=== PATIENT | male | born 1970 | race Hispanic/Latino ===

== ENCOUNTER 2018-01-06 09:03 | Outpatient (CLI) | payer OTHER ==
--- NOTE | 2018-01-06 09:51 | XRay Report ---
Cervical spine 3 views: History: Osteoarthritis. Findings: Normal height of vertebral bodies. Decrease in height of C4-C5, C5-C6. More pronounced at C5-C6. Sclerotic articular surfaces with evidence of cervical spondylosis. Normal prevertebral soft tissue. No fracture. Impression: Cervical spondylosis C4-C5 and C5-C6..
--- NOTE | 2018-01-06 09:52 | XRay Report ---
Left knee 2 views: History: Osteoarthritis. Findings: Minimal of the medial and patellofemoral compartment knee joint is noted articular surfaces of the degenerative changes being more pronounced in the patellofemoral compartment. No fracture. No joint effusion or soft tissue calcification. Impression: Mild arthritic changes medial and patellofemoral compartment knee joint.
--- NOTE | 2018-01-06 09:53 | XRay Report ---
Right shoulder 3 views: History: Osteoarthritis. Findings: There is [id number] arthritic changes noted at the a.c. joint. There is also calcification noted at the superior aspect of the a.c. joint. The glenohumeral joint appears unremarkable. The acromiohumeral space appears normal. No soft tissue calcification. Impression: Arthritic changes a.c. joint.
== END 2018-01-06 09:04 | disposition home or self-care (01) ==
LOC: XRAY 09:03
PROVIDERS: ATTEND Internal Medicine
DX: M19.011 Primary osteoarthritis, right shoulder (principal); M17.12 Unilateral primary osteoarthritis, left knee; M47.892 Other spondylosis, cervical region
CPT/HCPCS: 72040